=== PATIENT | male | born 1985 | race Caucasian/White ===

== ENCOUNTER 2017-09-19 08:26 | Emergency (ER) | payer OTHER ==
[~2017-09-19] VITALS: Ht 182.9 cm; Wt 125.0 kg
[2017-09-19 08:27] VITALS: BP 172/99; PULSE 103; RESP 12; TEMP 98; O2SAT 99
[2017-09-19] MEDS ORDERED: OMEP40CA2 PO (08:41)
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
== END 2017-09-19 10:29 | disposition home or self-care (01) ==
LOC: NEPC 08:26
DX: S43.51XA Sprain of right acromioclavicular joint, initial encounter (principal); K21.9 Gastro-esophageal reflux disease without esophagitis; Y04.2XXA Assault by strike against or bumped into by another person, initial encounter; Z79.899 Other long term (current) drug therapy; Z88.5 Allergy status to narcotic agent
CPT/HCPCS: 73030; 73050; 99283